=== PATIENT | male | born 1965 | race Two or more races ===

== ENCOUNTER 2017-08-12 21:15 | Emergency (ER) | payer MEDICAID, OTHER ==
[~2017-08-12] VITALS: Ht 165.1 cm; Wt 96.3 kg
[~2017-08-12 21:15] MED LIST: METF500T4 PO
[2017-08-12 21:42] VITALS: BP 144/94
== END 2017-08-13 00:42 | disposition home or self-care (01) ==
LOC: ER 21:15
DX: K40.90 Unilateral inguinal hernia, without obstruction or gangrene, not specified as recurrent (principal); E11.9 Type 2 diabetes mellitus without complications; Z79.84 Long term (current) use of oral hypoglycemic drugs
CPT/HCPCS: 99281

== ENCOUNTER 2018-01-24 20:27 | Emergency (ER) | payer MEDICAID ==
[~2018-01-24] VITALS: Ht 165.1 cm; Wt 94.0 kg
[~2018-01-24 20:27] MED LIST changes: +METF-436 PO; -METF500T4 PO
[2018-01-24 20:40] VITALS: BP 143/91
== END 2018-01-24 21:47 | disposition home or self-care (01) ==
LOC: ER 20:28
DX: S61.002A Unspecified open wound of left thumb without damage to nail, initial encounter (principal); E11.9 Type 2 diabetes mellitus without complications; Z90.49 Acquired absence of other specified parts of digestive tract; Z79.899 Other long term (current) drug therapy; W31.2XXA Contact with powered woodworking and forming machines, initial encounter; Y93.89 Activity, other specified; Y92.89 Other specified places as the place of occurrence of the external cause; Y99.9 Unspecified external cause status
CPT/HCPCS: 99281

== ENCOUNTER 2020-06-30 16:51 | Emergency (ER) | payer MEDICAID ==
[~2020-06-30] VITALS: Ht 165.1 cm; Wt 90.9 kg
[2020-06-30 17:04] VITALS: BP 143/90
== END 2020-06-30 19:16 | disposition home or self-care (01) ==
LOC: ER 16:51
DX: U07.1 COVID-19 (principal); R05 Cough; E11.9 Type 2 diabetes mellitus without complications; Z90.49 Acquired absence of other specified parts of digestive tract; Z79.899 Other long term (current) drug therapy
CPT/HCPCS: 36415; 87635; 99283

== ENCOUNTER 2020-07-02 16:30 | Emergency (ER) | payer MEDICAID ==
[~2020-07-02] VITALS: Ht 167.6 cm; Wt 81.8 kg
[2020-07-02 16:41] VITALS: BP 155/89
[2020-07-02] MEDS ORDERED: AZIT500T PO (17:19)
[2020-07-02] MEDS ORDERED: PRED10TA23 PO (17:19)
[2020-07-02] MEDS ORDERED: ALBU6.7H9 INH (17:19)
== END 2020-07-02 17:28 | disposition home or self-care (01) ==
LOC: ER 16:31
DX: U07.1 COVID-19 (principal); J40 Bronchitis, not specified as acute or chronic; R52 Pain, unspecified; E11.9 Type 2 diabetes mellitus without complications; Z90.49 Acquired absence of other specified parts of digestive tract; Z79.2 Long term (current) use of antibiotics; Z79.899 Other long term (current) drug therapy
CPT/HCPCS: 71045; 99283

== ENCOUNTER 2023-08-15 07:09 | Outpatient (CLI) | payer MEDICAID ==
[~2023-08-15 07:09] MED LIST changes: +ALBU6.7H14 INH
[2023-08-15] MEDS ORDERED: GADOTERATE MEGLUMINE 7.5 MMOL/15 ML VIAL IV ONE (18:02)
== END 2023-08-15 23:59 | disposition home or self-care (01) ==
LOC: MRI 07:09
PROVIDERS: ATTEND Family Medicine
DX: S09.90XA Unspecified injury of head, initial encounter (principal); G93.89 Other specified disorders of brain; X58.XXXA Exposure to other specified factors, initial encounter; Y93.89 Activity, other specified; Y92.89 Other specified places as the place of occurrence of the external cause; Y99.8 Other external cause status
CPT/HCPCS: 70553; A9575